=== PATIENT | female | born 1960 | race Caucasian/White ===

== ENCOUNTER 2016-08-21 12:45 | Observation (INO) | payer BC ==
[~2016-08-21] VITALS: Ht 177.8 cm; Wt 90.0 kg
[~2016-08-21 12:45] MED LIST: BENADRYL25 MG PO; PREDNISONE50 MG PO
[2016-08-21 13:34] LABS: HEMATOCRIT 37.8 % (36.0-46.0); MCH 30.7 PG (29.0-34.0); MCHC 33.3 G/DL (30.0-36.0); MCV 92.2 FL (83-99); MEAN PLAT.VOLUME 9.3 uM^3 (9.5-12.4); PLATELET COUNT 254 K/uL (156-360); RBC DIS.WIDTH-CV 12.7 % (11.8-14.6); RBC DIS.WIDTH-SD 42.4 % (39-53); WHITE BLOOD COUNT 7.8 K/uL (4.1-10.2)
[2016-08-21 13:42] LABS: CHLORIDE 107 mEq/L (99-109); POTASSIUM 3.9 mEq/L (3.7-5.4); SODIUM 140 mEq/L (136-147)
[2016-08-21 13:44] LABS: GLUCOSE 126 mg/dL (70-99)
[2016-08-21 13:45] LABS: ANION GAP 10 MEQ/L (2-14)
[2016-08-21 13:48] LABS: GFR ESTIMATE (CALCULATED) > 59 mL/min/; UREA NITROGEN (BUN) 9 mg/dL (9-23)
[2016-08-21 13:54] LABS: TROP-I INTERPRETATION NEGATIVE; TROPONIN-I < 0.01 ng/mL (0.0-0.30)
[2016-08-21] MEDS ORDERED: LEVOTHYROXINE137 MCG PO (15:26)
[2016-08-21 15:27] LABS: SAMPLE HEMOLYSIS CHECK 0; SAMPLE ICTERIC CHECK 0; SAMPLE LIPEMIA CHECK 0
[2016-08-21] MEDS ORDERED: METFORMIN HCL500 MG PO (15:27)
[2016-08-21] MEDS ORDERED: GLUCOPHAGE500 MG PO (15:28)
[2016-08-21 15:33] LABS: HDL CHOLESTEROL 68 MG/DL (Desirable>=50); LDL CHOLESTEROL 99 mg/dL (Desirable<100); NON-HDL CHOLESTEROL 130 mg/dL (Desirable<160); TOTAL CHOLESTEROL 198 mg/dL (Desirable<200); TRIGLYCERIDES 153 MG/DL (Normal: <150)
[2016-08-21 16:56] VITALS: BP 147/79
[2016-08-21 17:11] LABS: POINT-OF-CARE METER ID UU13113831
[2016-08-21] MEDS ORDERED: LEVO-T112 MCG PO (17:46)
[2016-08-21] MEDS ORDERED: LISINOPRIL20 MG PO (17:47)
[2016-08-21] MEDS ORDERED: CENTRUM WOMEN1 EACH PO (17:48)
[2016-08-21] MEDS ORDERED: ECHINACEA500 MG PO (17:52)
[2016-08-21] MEDS ORDERED: ALLEGRA60 MG PO (17:53)
[2016-08-21 18:12] LABS: Estimated Average Glucose 126 mg/dL (70-123)
[2016-08-21 20:00] VITALS: BP 151/78
[2016-08-21 22:15] LABS: TROP-I INTERPRETATION NEGATIVE; TROPONIN-I < 0.01 ng/mL (0.0-0.30)
[2016-08-21 23:26] VITALS: BP 147/73
[2016-08-22 01:02] LABS: TROP-I INTERPRETATION NEGATIVE; TROPONIN-I < 0.01 ng/mL (0.0-0.30)
[2016-08-22 04:00] VITALS: BP 121/56
[2016-08-22 07:52] LABS: TROP-I INTERPRETATION NEGATIVE; TROPONIN-I < 0.01 ng/mL (0.0-0.30)
[2016-08-22 07:56] VITALS: BP 139/76
[2016-08-22 12:09] VITALS: BP 149/69
[2016-08-22 12:13] LABS: POINT-OF-CARE METER ID UU13113831
== END 2016-08-22 13:16 | disposition home or self-care (01) ==
LOC: EME 12:45 → EDOF 14:29 → 5WEST 16:00
PROVIDERS: Emergency Medicine; Internal Medicine; Physician Assistant Medical; Student in an Organized Health Care Education/Training Program
DX: R07.89 Other chest pain (principal); I10 Essential (primary) hypertension; E11.9 Type 2 diabetes mellitus without complications; E78.00 Pure hypercholesterolemia, unspecified; E78.2 Mixed hyperlipidemia; E03.9 Hypothyroidism, unspecified; E66.3 Overweight; Z68.28 Body mass index [BMI] 28.0-28.9, adult
CPT/HCPCS: 71020; 80048; 80061; 82948; 83036; 84484; 85027; 93005; 99281; 99285; G0378; J1650; J1815